=== PATIENT | male | born 1945 | race Caucasian/White ===

== ENCOUNTER → 2019-08-27 | Outpatient (CLI) | payer OTHER | LOC: CAT 11:53 | DX: J84.10 Pulmonary fibrosis, unspecified (principal); M47.814 Spondylosis without myelopathy or radiculopathy, thoracic region; M51.45 Schmorl's nodes, thoracolumbar region ==

== ENCOUNTER → 2020-02-26 | Outpatient (CLI) | payer OTHER ==
[~2020-02-26] MED LIST: ASA81BEC PO; FLOMAX0.4 MG PO; LEVO-T100 MCG PO; MEMANTINE HCL10 MG PO; METAMUCIL1 EAC1 PO; NORVASC 2.5 MG2.5 M1 PO; PANTOPRAZOLE SO40 M1 PO; RIVASTIGMINE1.5 MG PO; SLO-NIACIN500 MG PO; TESTOSTERO200 MG/11 IM
== END ==
LOC: LAB 08:08
PROVIDERS: ATTEND Student in an Organized Health Care Education/Training Program
DX: U07.1 COVID-19 (principal)

== ENCOUNTER 2020-02-28 21:05 | Inpatient (IN) | payer OTHER ==
[~2020-02-28] VITALS: Ht 172.7 cm; Wt 81.2 kg
[2020-02-28 21:08] VITALS: BP 98/67
[2020-02-28 22:19] LABS: HEMATOCRIT 47.3 % (42.0-52.0); MCH 30.7 pg (26.0-34.0); MCHC 33.8 g/dL (28.0-37.0); MCV 90.9 fL (80.0-100.0); PLATELET COUNT 125 thou/uL (150-400); RBC 5.21 mil/uL (4.50-6.00); RDW 13.2 % (10.5-14.5); WBC 4.2 thou/uL (4.0-11.0)
[2020-02-28 22:23] LABS: URINE BILIRUBIN NEGATIVE (Negative); URINE BLOOD TRACE (Negative); URINE CLARITY CLEAR; URINE COLOR YELLOW; URINE GLUCOSE-RANDOM* NEGATIVE (Negative); URINE KETONES TRACE (Negative); URINE LEUKOCYTES-REFLEX NEGATIVE (Negative); URINE NITRITE-REFLEX NEGATIVE (Negative); URINE PROTEIN (DIPSTICK) 1+ (Negative); URINE UROBILINOGEN 0.2 E.U./dl (0.2-1.0)
[2020-02-28 22:27] LABS: ANION GAP 10 mmol/L (7-16); BUN 22 mg/dL (7-18); CALCIUM 8.3 mg/dL (8.5-10.1); CHLORIDE 96 mmol/L (98-107); CO2 25 mmol/L (21-32); CREATININE 1.5 mg/dL (0.7-1.3); GLUCOSE 98 mg/dL (74-106); SODIUM 131 mmol/L (136-145)
[2020-02-28 22:33] LABS: BACTERIA-REFLEX None Seen /HPF (None Seen); CRYSTALS None Seen /LPF (None Seen); HYALINE CASTS 0-3 Few /LPF (None Seen); MUCUS 0-3 Light strn/LPF (None Seen); SQUAMOUS None Seen /LPF (0-3); TRANSITIONAL EPITHEL CELL 0-3 Few /LPF (None Seen); URINE RBC None Seen /HPF (0-2); URINE WBC-REFLEX None Seen /HPF (0-5)
[2020-02-28 22:36] LABS: ALBUMIN 3.4 g/dL (3.4-5.0); POTASSIUM 4.4 mmol/L (3.5-5.1); SGOT 101 U/L (15-37); SGPT 78 U/L (30-65); TOTAL BILIRUBIN 0.8 mg/dL (0.2-1.0); TOTAL PROTEIN 7.2 g/dL (6.4-8.2); TROPONIN-I <0.06 ng/mL (<0.06)
[2020-02-28 22:49] LABS: ABSOLUTE NEUTROPHILS 2.7 thou/uL (1.4-8.2); ATYPICAL LYMPHS 3 %
[2020-02-29] MEDS ORDERED: NORVASC 2.5 MG2.5 M1 PO (01:29)
[2020-02-29] MEDS ORDERED: LEVO-T100 MCG PO (01:30)
[2020-02-29] MEDS ORDERED: SLO-NIACIN500 MG PO (01:31)
[2020-02-29] MEDS ORDERED: TESTOSTERO200 MG/11 IM (01:33)
[2020-02-29] MEDS ORDERED: MEMANTINE HCL10 MG PO (01:34)
[2020-02-29] MEDS ORDERED: RIVASTIGMINE1.5 MG PO (01:34)
[2020-02-29] MEDS ORDERED: ASA81BEC PO (01:35)
[2020-02-29] MEDS ORDERED: PANTOPRAZOLE SO40 M1 PO (01:35)
[2020-02-29] MEDS ORDERED: FLOMAX0.4 MG PO (01:36)
[2020-02-29 01:48] VITALS: BP 134/71
[2020-02-29 02:06] VITALS: BP 133/86
[2020-02-29 02:34] VITALS: BP 119/74
--- NOTE | 2020-02-29 04:08 | NUR ---
PT ARRIVED ON THE UNIT THIS AM @0230. ALERT AND ORIENTED TO PERSON AND PLACE. FORGETFUL. ABLE TO ANSWER BASIC QUESTION. ADMISSION DONE AND CHARTED. PT ORIENTED TO THE UNIT. LIVES AT HOME WITH AND USES A WALKER. IV INTACT AND FLUIDS STARTED. URINAL AT BEDSIDE. PT DRIVERS LICENCE AND MEDICARE RX SENT TO SECURITY FOR SAFE KEEPING. DRY COUGH NOTED. FALL PREC IN PLACE AND WILL CONT TO MONITOR.
[2020-02-29 07:56] VITALS: BP 110/63
--- NOTE | 2020-02-29 08:18 | EKG ---
[facility] [place] [address] ELECTROCARDIOGRAM REPORT Name: OUMOU DAMON Room #: 361- ADM IN M.R.#: [id number] Admission: 02/28/20 Attend Phys: Jp Valdez MD Discharge: Date of : 41 Report #: [id number] THIS REPORT FOR: cc: Geoffrey Hanley Steven F. DO Couchonnal, Luis F. MD ~ THIS REPORT FOR: //name// [facility] ED Test Date: 2020-02-28 Test Time: 21:27:00 Pat Name: OUMOU DAMON Department: Room: [facility] Gender: M Sales Department Supervisor: JENIFFER : 1945 Requested By: Prasanna Rizzo Order Number: [id number] MD: Rich Urban Measurements Intervals [place] Rate: 78 P: 58 AL: 168 QRS: 36 QRSD: 97 T: 24 QT: 367 QTc: 419 Interpretive Statements Sinus rhythm Baseline wander in lead(s) V2 No previous ECG available for comparison Electronically Signed On 02-29-2020 8:18:22 CDT by Rich Urban [email or web address] <ELECTRONICALLY SIGNED> By: Rich Urban MD 02/29/20817 26 26 Rich Urban MD /EPI
--- NOTE | 2020-02-29 12:33 | NUR ---
PATIENT COVID TEST RESULTED POSITIVE THIS AFTERNOON. ALEXANDRA PITTMAN RN CALLED AT THIS TIME TO MAKE AWARE. ALSO MADE HER AWARE THAT PATIENT HAD POSITIVE TEST AN OUTPATIENT FOR AN EDOSCOPY PATIENT REMAINS IN ISOLATION.
[2020-02-29] MEDS ORDERED: METAMUCIL1 EAC1 PO (13:04)
--- NOTE | 2020-02-29 13:10 | NUR ---
SPOKE WITH PATIENT TO UPDATE ON CONDITION. STATES THAT SHE WANTS PATIENT TO TAKE METAMUCIL SINCE HE IS ON IT AT HOME AND TAKES EVERY MORNING FOR CONSTIPATION ISSUED, DR. CARRILLO STATES TO HOLD FOR NOW SINCE PATIENT IS HAVING DIARRHEA. PATIENT ALSO WORRIED ABOUT NEED FOR CPAP AT NIGHT. DR. CARRILLO STATES CTM PATIENT BREATHING, PATIENT BREATHING WELL NOW WITHOUT NEED FOR SUPP O2. NO CPAP FOR NOW BECAUSE OF RISK FOR CONTAMINATION SINCE PATIENT IS COVID POSITIVE. PATIENT MADE AWARE.
[2020-02-29 16:12] VITALS: BP 113/61
--- NOTE | 2020-02-29 16:20 | NUR ---
INITIAL ASSESSMENT: Received consult. SW reviewed chart and spoke with nursing and attending physician. Pt was admitted from home due to AMS/pneumonia. Pt placed in Enhanced Isolation. Pt's COVID test is positive. ID consulted to evaluate pt. Pt was febrile upon admission and is on IV abx. No requiring O2 at this time. Call placed into pt's room. No answer. Per chart, pt lives at home with his . Prior to admission, pt was using a walker. Pt will benefit from therapy evals when able to participate. Pt's PCP is Dr. Hanley. Pt had a COVID test completed on 02/25 as an outpatient for outpatient procedure. Test was positive. SW is following to assist as needed with discharge planning.
[2020-02-29 19:41] VITALS: BP 137/67
--- NOTE | 2020-03-01 02:56 | NUR ---
PT ALERT AND ORIENTED. FORGETFUL AT TIMES. BED ALARM ON . CALL LIGHT IN REACH. TEMP 102.4 TYLEMOL GIVEN . TEMP DOWN TO 99. NO OTHER S/S DISTRESS. GAIT IS WEAK. 1 PERSON ASSIST TO BSC WITH WALKER.
[2020-03-01 04:24] VITALS: BP 155/81
[2020-03-01 07:26] LABS: CALCIUM 7.7 mg/dL (8.5-10.1); CREATININE 1.2 mg/dL (0.7-1.3); POTASSIUM 3.9 mmol/L (3.5-5.1)
[2020-03-01 07:57] VITALS: BP 142/74
--- NOTE | 2020-03-01 15:24 | NUR ---
SW reviewed chart and spoke with nursing and attending physician. Pt in Enhanced Isolation due to COVID-19. Pt is on IV abx. Therapy to eval pt when he is able to participate. SW left voice message for pt's at [phone] to obtain info for assessment and discuss discharge planning. BERTA is following to assist as needed with discharge planning.
[2020-03-01 15:50] VITALS: BP 151/59
[2020-03-01 19:45] VITALS: BP 134/72
--- NOTE | 2020-03-01 20:14 | NUR ---
ASSUMED PATIENT CARE THIS MORNING AT APPROXIMATELY 0700. PATIENT AWAKE AND ALERT THROUGHOUT THIS SHIFT. REMAINS CONFUSED BUT PLEASANT. ORIENTED ONLY TO SELF AND SITUATION. O2 STILL STABLE ON ROOM AIR. HAVING FEVERS THROUGHOUT THIS SHIFT OF 103. MD MADE AWARE OF FEVERS UPON ROUNDING. OTHER VSS. PATIENT HAVING VERY POOR APPETITE, ENCOURAGED PO INTAKE WITH EVERY MEAL. ALSO HAVING LOOSE, WATERY STOOLS. WORKED WITH PHYSICAL THERAPY TODAY FOR DECONDITIONING. SPOKE WITH LUIS ON PHONE TO UPDATE ON CONDITION.
--- NOTE | 2020-03-02 00:22 | NUR ---
PT RESTING IN BED, PLEASANTLY CONFUSED ALERT TO SELF AND SITUATION. . PHONE WAS RINGING AND PT STATED HE DID NOT KNOW IT WAS RINGING. PT HAS COUGH. LUNGS DIMINISHED IN BASES. PT VERY WEAK AND REQUIRED A TWO PERSON TRANSFER TO BSC, ALSO ASSISTED WITH URINAL. PT IMPULSIVE AND HAS TRIED TO GET OOB SEVERAL TIMES. SCDS ON BED ALARM ON.
[2020-03-02 04:05] VITALS: BP 135/75
[2020-03-02 06:27] LABS: ABSOLUTE NEUTROPHILS 2.9 thou/uL (1.4-8.2); BASOPHILS 0.2 % (0.0-2.0); HEMATOCRIT 43.9 % (42.0-52.0); HEMOGLOBIN 14.8 gm/dL (14.0-18.0); LYMPHOCYTES 12.9 % (24.0-44.0); MCH 30.7 pg (26.0-34.0); MCHC 33.8 g/dL (28.0-37.0); MCV 90.6 fL (80.0-100.0); MONOCYTES 6.3 % (1.0-8.0); PLATELET COUNT 107 thou/uL (150-400); POLYS 80.6 % (36.0-66.0); RBC 4.84 mil/uL (4.50-6.00); RDW 13.2 % (10.5-14.5); WBC 3.6 thou/uL (4.0-11.0)
[2020-03-02 08:42] VITALS: BP 129/78
--- NOTE | 2020-03-02 09:55 | NUR ---
ASSUMED CARE FOR THIS PATIENT FOR THE FIRST TIME TODAY, UPON INITIAL ASSESSMENT PT IS ORIENTED TO SELF AND PLACE. PT IS PLEASANT BUT FORGETFUL. PT WAS REMINISCING ABOUT PAST TIMES WITH THE RN AND DID NOT SEEM TO BE IN DISTRESS. TEMPERATURE WAS AT 99.3 THIS AM AND IS BEING MONITORED. PT'S CALLED AND WAS CONCERNED ABOUT PT'S DIETARY STATUS. RN PLACED A DIETARY CONSULT FOR ENSURE SINCE PT IS HAVING POOR APPETITE EVEN AFTER RN SET UP BREAKFAST IN ROOM FOR THE PATIENT. PT WAS SEEN WATCHING TV. FALL PRECAUTIONS IN PLACE, BED ALARM IS ON, FLUIDS NEAR BY THE BED, WILL CONTINUE TO FOLLOW AND UPDATE NEEDED
[2020-03-02 10:56] VITALS: BP 137/80
--- NOTE | 2020-03-02 11:34 | NUR ---
SW reviewed chart and spoke with nursing and attending physician. Pt is in Enhanced Isolation due to COVID-19. Pt with a low grade fever today. Pt is no requiring O2. Therapy to work with pt for recommendations for discharge. SW received voice message from pt's . SW returned call and left voice message to discuss pt's prior level of functioning and discharge plan. Phone number for updated ([phone]). SW is following to assist as needed with discharge planning.
[2020-03-02 15:31] VITALS: BP 132/68
[2020-03-02 20:25] VITALS: BP 114/67
--- NOTE | 2020-03-02 23:56 | NUR ---
PT REMAINS CONFUSED. HE IS OTHERWISE PLEASANT. FEVER OF 103(AX) AT AROUND 2230. TYLENOL GIVEN.PT IS A LITTLE RESTLESS. INCONTINENT OF B/B. SMALL BM NOTED. PUSHING FLUIDS AND SUPPLEMENTS.ASSISTED TO REPOSITION. VERY WEAK.FALL PREC IN PLACE.
[2020-03-03 05:22] VITALS: BP 135/72
[2020-03-03 07:20] VITALS: BP 116/81
--- NOTE | 2020-03-03 13:41 | NUR ---
BERTA reviewed chart and spoke with nursing and attending physician. Pt is in Enhanced Isolation due to COVID-19. Pt is febrile and on IV abx. Pt is not requiring O2. BERTA spoke with pt's , Elisha, via phone. Introduced role of BERTA. Per Elisha, pt is normally independent with ADLs at home. He does not use any DME. Pt has been walking about 2 miles per day prior to becoming weak and fatigued. Therapy is working with pt to assist with recommendations at time of discharge. BERTA discussed discharge plans with pt's . Pt's would prefer pt come home with services. Pt has used HH services in the past. Unsure name of provider. Pt has also done outpatient therapy at [facility]. Pt's PCP is Dr. Hanley. BERTA is following to assist as needed with discharge planning.
[2020-03-03 15:52] VITALS: BP 131/77
[2020-03-03 20:45] VITALS: BP 111/65
[2020-03-04 04:40] VITALS: BP 144/78
[2020-03-04 06:51] LABS: HEMATOCRIT 46.9 % (42.0-52.0); HEMOGLOBIN 15.7 gm/dL (14.0-18.0); MCH 30.2 pg (26.0-34.0); MCHC 33.6 g/dL (28.0-37.0); MCV 89.9 fL (80.0-100.0); RBC 5.22 mil/uL (4.50-6.00); RDW 13.2 % (10.5-14.5); WBC 5.1 thou/uL (4.0-11.0)
[2020-03-04 07:14] LABS: ALBUMIN 2.8 g/dL (3.4-5.0); CALCIUM 7.8 mg/dL (8.5-10.1); CREATININE 1.3 mg/dL (0.7-1.3); POTASSIUM 3.5 mmol/L (3.5-5.1); TOTAL BILIRUBIN 0.7 mg/dL (0.2-1.0); TOTAL PROTEIN 6.7 g/dL (6.4-8.2)
--- NOTE | 2020-03-04 07:50 | NUR ---
RESTED WELL THROUGHOUT HOURLY ROUNDS, IV REPLACED DURING SHIFT , PT INCONINTEBT OF LOOSE BROWN STOOL . NO CHANGES NOTED, WILL CONITNUE WITH CURRENT PLAN OF CARE.
[2020-03-04 08:26] VITALS: BP 101/53
--- NOTE | 2020-03-04 11:37 | NUR ---
PT WAS SEEN TODAY, APPEARS SAME YESTERDAY. HAD TWO BOWEL MOVEMENT THIS MORNING, BOTH DIARRHEA. PT ALSO RAN A LOW GRADE FEVER OF 100F IN THE AM, TYLENOL WAS PROVIDED PER ORDER. PT IS STILL HAVING VERY LOW APPETITE, ENSURE IS BEING ENCOURAGED HYDRATION WELL. PT'S FACE IS STIL FLUSHED. PT/OT WORKED WITH THE PT THIS MORNING. PT WAS ABLE TO GET OUT OF BED AND UP TO THE RECLINING CHAIR W/ ONLY ONE PERSON ASSIST. NO OTHER ISSUES AT THIS TIME
--- NOTE | 2020-03-04 13:47 | NUR ---
SW reviewed chart and spoke with nursing and attending physician. Pt is in Enhanced Isolation to r/o COVID-19. Pt is afebrile. Pt is on IV abx. Pt not on O2. Recommendation made for pt to go to post-acute care upon discharge. SW spoke with pt's via phone to discuss discharge plan. Pt's states that due to pt's dementia, she would want pt to return home with HH services. Pt's states that she feels she would be able to take care of pt at home. SW reviewed therapy notes. No weekend discharge planned. Options discussed for HH agencies. No preference voiced. SW discussed potential placement if pt were not to do well at home and need placement from home. SW explained that insurance authorization would need to be obtained. SW to provide SNF list to pt's for review when discharged. BERTA faxed referral to [facility] for review. Notified HH liaison. BERTA is following to assist as needed with discharge planning.
[2020-03-04 15:52] VITALS: BP 126/64
[2020-03-04 19:46] VITALS: BP 133/54
--- NOTE | 2020-03-05 01:05 | NUR ---
PT AOX2-3, TO PERSON, PLACE, AND SITUATION AT TIMES. PT NOTED TO BE FORGETFUL WITH INTERMITTENT CONFUSION. PT HAVING INAPPROPRIATE CONVERSATIONS, ABLE TO REDIRECT WITHOUT ISSUE. PT DENIES PAIN. NOTED TO HAVE LOW O2 SATURATIONS ON ROOM AIR, 2L O2 VIA NC APPLIED, SATURATIONS NOTED TO INCREASE TO 89-90%. PT NOTED TO REMOVE NC DUE TO DISCOMFORT. PT AWARE OF NEEDS, POOR COORDINATION DUE TO TREMORS. VOIDING VIA URINAL. SKIN ASSESSED WITH REDDNESS TO COCCYX AREA, BARRIER CREAM APPLIED, FREQUENT REPOSITIONING ENCOURAGED. ASSISTANT SPA DIRECTOR SUPERVISOR ASSEMBLY ROOM NOTIFIED OF POTENTIAL SKIN BREAKDOWN, RECEIVED ORDERS FOR LOW AIR LOSS PUMP, WOUND CONSULT ENTERED. PT ABLE TO ASSIST WITH REPOSITIONING, NOTED TO HAVE WEAKNESS WITH EXERTION. PT TOLERATING PO INTAKE OF FLUIDS AND REGULAR DIET, PT HAD LESS THAN 25% OF DINNER. ENCOURAGED PT TO NOTIFY STAFF FOR ALL NEEDS. CALL LIGHT WITHIN REACH, BED ALARM ON, BED IN LOWEST POSITION, ROOM REMAINS NEAR NURSES STATION. WILL CONTINUE TO MONITOR.
[2020-03-05 04:27] VITALS: BP 121/67
[2020-03-05 05:30] LABS: BE(vivo) -3.3 mmol/L (-2 to +3); HCO3 17.7 mmol/L (22.0-26.0); PCO2 23.2 mmHg (35.0-45.0); PO2 47.5 mmHg (80.0-100.0); pH 7.501 (7.360-7.450); sO2 87.9 % (92.0-98.0)
[2020-03-05 08:21] VITALS: BP 121/68
[2020-03-05 11:55] VITALS: BP 124/63
--- NOTE | 2020-03-05 13:48 | NUR ---
Assumed pt care at 7am.Assessment completed.vss but pt abg report early this am was not good. Dr Ho and Shaheed aware.Pt alert and oriented to person but confused and forgetful.O2 sat on 6l was ranging from 88 to 91%.Dr Hummel notified,she said she will discuss with Dr Ho possible putting pt on bipap. Pt yells out on and off but reoriented as needed.Will continue to monitor.
[2020-03-05 15:51] VITALS: BP 121/65
[2020-03-05 16:49] LABS: BASOPHILS 0.4 % (0.0-2.0); HEMATOCRIT 42.5 % (42.0-52.0); HEMOGLOBIN 14.6 gm/dL (14.0-18.0); LYMPHOCYTES 5.1 % (24.0-44.0); MCH 31.1 pg (26.0-34.0); MCHC 34.4 g/dL (28.0-37.0); MCV 90.3 fL (80.0-100.0); MONOCYTES 3.1 % (1.0-8.0); PLATELET COUNT 183 thou/uL (150-400); POLYS 91.4 % (36.0-66.0); RDW 13.6 % (10.5-14.5); WBC 6.5 thou/uL (4.0-11.0)
[2020-03-05 17:07] LABS: ALBUMIN 2.3 g/dL (3.4-5.0); CALCIUM 7.5 mg/dL (8.5-10.1); CREATININE 1.2 mg/dL (0.7-1.3); MAGNESIUM 2.3 mg/dL (1.8-2.4); POTASSIUM 3.7 mmol/L (3.5-5.1); TOTAL BILIRUBIN 1.1 mg/dL (0.2-1.0); TOTAL PROTEIN 6.2 g/dL (6.4-8.2)
[2020-03-05 18:08] LABS: BE(vivo) -0.5 mmol/L (-2 to +3); HCO3 21.5 mmol/L (22.0-26.0); PCO2 28.7 mmHg (35.0-45.0); pH 7.492 (7.360-7.450); sO2 89.5 % (92.0-98.0)
[2020-03-05 20:11] VITALS: BP 118/71
[2020-03-05 23:01] VITALS: BP 141/60
[2020-03-06] VITALS (34 sets, daily range): BP systolic 95–135; BP diastolic 58–100
--- NOTE | 2020-03-06 04:30 | NUR ---
PATIENT ARRIVED FROM 3W AROUND 1999. TRANSFERED TO ICU BED, PLACED ON ICU SYSTEMS. RESPIRATORY THERAPY PLACED HIM ON BIPAP AT 65%, TACHYPNIC. SPOKE WITH WERNER GONZALES NP AND RECEIVED ORDER FOR DEXMEDETOMIDINE. PATIENT CONFUSED AND IMPULSIVE. FALL PRECAUTIONS IN PLACE DURING SHIFT. DENIED PAIN. SPOKE WITH HIS LUIS WHO HAD NOT BEEN INFORMED OF HIS MOVE TO ICU.
[2020-03-06 06:21] LABS: ABSOLUTE NEUTROPHILS 6.6 thou/uL (1.4-8.2); BASOPHILS 0.1 % (0.0-2.0); HEMOGLOBIN 15.2 gm/dL (14.0-18.0); MCH 30.4 pg (26.0-34.0); MCHC 33.7 g/dL (28.0-37.0); MCV 90.2 fL (80.0-100.0); MONOCYTES 2.7 % (1.0-8.0); PLATELET COUNT 201 thou/uL (150-400); POLYS 93.2 % (36.0-66.0); RBC 4.99 mil/uL (4.50-6.00); RDW 13.4 % (10.5-14.5); WBC 7.1 thou/uL (4.0-11.0)
[2020-03-06 07:18] LABS: ALBUMIN 2.3 g/dL (3.4-5.0); CALCIUM 8.3 mg/dL (8.5-10.1); CREATININE 1.1 mg/dL (0.7-1.3); POTASSIUM 4.5 mmol/L (3.5-5.1); TOTAL BILIRUBIN 0.9 mg/dL (0.2-1.0); TOTAL PROTEIN 6.7 g/dL (6.4-8.2)
[2020-03-06 08:11] LABS: PROTIME 10.3 Seconds (9.3-11.4)
--- NOTE | 2020-03-06 19:19 | NUR ---
PATIENT REMAINS ON BIPAP DURING THE DAY. 65% FIO2. PRECEDEX WEANED OFF. SINUS JESSICA. CONDOM CATHETER. RIGHT PIV.
[2020-03-07] VITALS (8 sets, daily range): BP systolic 108–148; BP diastolic 59–73
[2020-03-07 05:39] LABS: ABSOLUTE NEUTROPHILS 5.1 thou/uL (1.4-8.2); BASOPHILS 0.2 % (0.0-2.0); HEMATOCRIT 47.9 % (42.0-52.0); HEMOGLOBIN 16.1 gm/dL (14.0-18.0); LYMPHOCYTES 7.6 % (24.0-44.0); MCH 30.4 pg (26.0-34.0); MCHC 33.7 g/dL (28.0-37.0); MCV 90.2 fL (80.0-100.0); MONOCYTES 6.1 % (1.0-8.0); PLATELET COUNT 219 thou/uL (150-400); POLYS 86.1 % (36.0-66.0); RBC 5.31 mil/uL (4.50-6.00); RDW 13.5 % (10.5-14.5)
[2020-03-07 06:13] LABS: CREATININE 0.9 mg/dL (0.7-1.3); MAGNESIUM 2.9 mg/dL (1.8-2.4); PHOSPHORUS 3.3 mg/dL (2.5-4.9)
--- NOTE | 2020-03-07 06:19 | NUR ---
PT MAKING SLOW PROGRESS TOWARDS GOALS. ON BIPAP THROUGHOUT THE NIGHT. ABLE TO TOLERATE MOMENTARY BREAKS OFF BIPAP TO TAKE PO MEDS AND SIPS OF WATER WITHOUT OBSERVABLE SOA. CONTINUE TO MONITOR.
--- NOTE | 2020-03-07 14:56 | NUR ---
SW reviewed chart and spoke with nursing and attending physician. Pt in Enhanced Isolation due to COVID-19. Pt was transferred to ICU and then back to 3W over the weekend. Pt is requiring bipap support. Pt is afebrile and on IV abx/IV steroids. Pt may have convalescent plasma per ID. Therapy is on hold at this time. SW is following to assist as needed with discharge planning.
--- NOTE | 2020-03-07 16:21 | NUR ---
PT WITH DECLINE IN MEDICAL STATUS OVER THE WEEKEND W/TX TO ICU PRIOR TO RETURN TO 3W. PT ON BIPAP W/TRIALS OFF BIPAP THIS DATE. PER DEPT POLICY, REQUEST NEW P.T. ORDERS ONCE PT IS DEEMED APPROPRIATE FOR RESUMPTION OF THERAPEUTIC ACTIVITIES.
--- NOTE | 2020-03-07 20:16 | NUR ---
PT STARTED SHIFT ON BIPAP WITH 60% FIO2 AND WAS ON 3L @ 1700...WILL MONITOR
[2020-03-08 04:00] VITALS: BP 133/70
--- NOTE | 2020-03-08 06:06 | NUR ---
PT MAKING PROGRESS TOWARDS GOALS. PT FREQUENTLY REMOVES OXYGEN CANNULA FROM HIS NOSE. PT COOPERATIVE BUT UNABLE TO RETAIN INSTRUCTIONS. O2 SATS PERFORMED ARE ALL ON ROOM AIR. O2 SAT GENERALLY 95% ON ROOM AIR. LUNGS DIMINISHED IN BOTH BASES. WEAK AND NON-PRODUCTIVE COUGH OBSERVED THIS MORNING. PT DENIES FEELING SOA AT REST. HAS BEEN TURNING SELF IN BED.
[2020-03-08 07:30] VITALS: BP 125/70
[2020-03-08 11:13] VITALS: BP 130/60
[2020-03-08 15:29] VITALS: BP 131/60
--- NOTE | 2020-03-08 15:46 | NUR ---
BERTA reviewed chart and spoke with nursing and attending physician. Pt remains in Enhanced Isolation due to COVID-19. Pt is afebrile and not requiring O2. Pt is on IV abx/IV steroids. Pt had plasma last evening. Therapy to be reordered to work with pt prior to discharge. Discharge home with is anticipated for tomorrow. [facility] has accepted pt onto service. Repeat COVID test ordered today. PT/OT ordered to re-evaluate pt. BERTA updated Diana in intake at to notify of anticipated discharge. BERTA spoke with pt's , Elisha, via phone to provide update and discuss discharge plan. Pt's is aware and in agreement with plan. BERTA is following to assist as needed with discharge planning.
[2020-03-08 19:05] VITALS: BP 127/72
[2020-03-09 04:14] VITALS: BP 132/73
--- NOTE | 2020-03-09 05:38 | NUR ---
PT MAKING PROGRESS TOWARDS GOALS. HAS BEEN ON ROOM AIR THROUGHOUT THE NIGHT. NOTED OCCASIONAL NON-PRODUCTIVE COUGH. DENIES ANY SOA WHILE LYING IN BED. COOPERATIVE BUT FORGETFUL. ABLE TO STATE NAME AND "HOSPITAL" CORRECTLY.
[2020-03-09 08:00] VITALS: BP 137/68
[2020-03-09 11:00] VITALS: BP 137/68
[2020-03-09] MEDS ORDERED: PREDNISONE 20 M20 M1 PO (11:20)
[2020-03-09] MEDS ORDERED: COMBIVENT RESPIM4 GM INH (11:20)
[2020-03-09 13:02] VITALS: BP 123/75
[2020-03-09 14:00] VITALS: BP 115/65
--- NOTE | 2020-03-09 15:18 | NUR ---
BERTA reviewed chart and spoke with nursing and attending physician. Pt remains in Enhanced Isolation. Pt's repeat COVID test from 03/08 negative. Pt is afebrile and not requiring O2. Pt is on IV steroids and IV abx. Pt is progressing towards goals for discharge. Therapy is recommending possible post-acute care at time of discharge due to pt's level of care needs. Pt will need assistance. BERTA spoke with pt's via phone to provide update. Pt's is really adamant about bringing pt home with HH. She does not want pt to go a nursing facility due to his dementia and COVID. Pt's states their son is in town and will be able to assist as needed. BERTA discussed with both PT/OT, who will see pt again tomorrow to determine if pt is safe to return home. BERTA updated attending physician. BERTA is following to assist as needed with discharge planning.
[2020-03-09] MEDS ORDERED: SYNTHROID100 MC1 PO (18:41)
--- NOTE | 2020-03-09 19:04 | NUR ---
PT KNOWS HIS NAME AND HIS BIRTHDAY, BUT PT IS CONFUSED AT MOST OF TIME, HE TRIES TO GET UP BY HIMSELF, PT IS OFF O2, AND HE IS ON ROOM AIR , PT'S VS ARE STABLE, PT DOES NOT HAVE SOB AND FEVER, PT IS CONTINUING IV ABX , PT'S PLAN IS DC TOMORROW.
[2020-03-09 19:21] VITALS: BP 157/50
--- NOTE | 2020-03-09 21:09 | NUR ---
PT ALERT TO SELF AND SITUATION, PLEASANT JOKES TALKS [facility] CONTACT. IVF INTACT. PT UNSTEADY GAIT, AMBULATES WITH WALKER AND SBA. PT VERY IMPULSIVE, FREQUENTLY GETS OUT OF BED. LUNGS DIMINSHED WITH COUGH. PTS CALLED STATING SHE WANTS TO TAKE HIM HOME AND SHE HAS HER SON TO HELP. ENCOURAGED PT TO DRINK AND HAVE SNACK FROM HOME. BED ALARM ON.
[2020-03-10 05:27] VITALS: BP 148/75
[2020-03-10 07:46] VITALS: BP 185/77
[2020-03-10 09:06] VITALS: BP 185/77
[2020-03-10 09:07] VITALS: BP 142/81
[2020-03-10] MEDS ORDERED: AUGMENTIN 875-1 EACH PO (09:15)
--- NOTE | 2020-03-10 09:19 | HC ---
[facility] [place] [address] CONSULTATION Name: OUMOU DAMON Room #: 349-I ADM IN M.R.#: [id number] Admission: 02/28/20 Attend Phys: Jp Valdez MD Discharge: Date of : 41 Report #: [id number] THIS REPORT FOR: cc: Geoffrey Hanley,Lalo Jackson MD ~ CC: Jp Hanley DATE OF SERVICE: 03/07/2020 CHIEF COMPLAINT: Possible sacral pressure ulceration. HISTORY OF PRESENT ILLNESS: This is a 74-year-old male patient with a history of hypertension, BPH, and hypothyroidism, who was admitted to the hospital with weakness. He was noted to have respiratory failure secondary to COVID-19 pneumonia. He was felt to possibly have a sacral ulceration. I have been asked to see him with regard to wound care. The patient is slow to answer questions and has a history of baseline dementia. ALLERGIES: No known drug allergies. PAST MEDICAL HISTORY: Hypothyroidism, gastroesophageal reflux disease, hypertension, BPH, dementia. SOCIAL HISTORY: Negative for alcohol or tobacco use. MEDICATIONS: Include amlodipine and levothyroxine. REVIEW OF SYSTEMS: Unobtainable due to the patient's current clinical status and underlying dementia. PHYSICAL EXAMINATION: VITAL SIGNS: At this time include temperature 36.7, pulse 68, respiratory rate 16, blood pressure 121/62. GENERAL: This is a somewhat chronically ill-appearing male patient who appears to be in minimal distress. HEENT: Head normocephalic. Nose and throat clear. NECK: Supple. HEART: Regular rhythm. LUNGS: Clear. ABDOMEN: Soft, nontender. EXTREMITIES: Without clubbing or cyanosis. NEUROLOGIC: The patient is awake, seems oriented, but is slow to answer questions. SKIN: Demonstrates that the heels are intact. There is mild erythema that is [facility] [address] [place] [address] CONSULTATION Name: OUMOU DAMON Room #: 349-I [facility]#: [id number] Admission: 02/28/20 Attend Phys: Jp Valdez MD Discharge: Date of : 41 Report #: [id number] blanchable to the sacral region. No other open ulcerations are noted. CLINICAL IMPRESSION: 1. Frailty with high risk for skin breakdown. 2. Dementia with altered mental status. 3. Suspected COVID-19 infection. 4. Hypothyroidism. 5. Severe protein-calorie malnutrition with albumin of 2.3. RECOMMENDATIONS: At this point in time, the areas of the sacral erythema are really not breakdown, do not even represent stage I pressure ulceration. We will recommend a moisture barrier cream; however daily and p.r.n. as a preventative measure. He will need a low air loss surface and turning and repositioning every 2 hours and will need to offload his heels to prevent breakdown in that area. Continue with maximizing nutritional input to improve his general debility. I appreciate being asked to see him in consultation. <ELECTRONICALLY SIGNED> By: Lalo Perez MD 03/10/20 0919 [id number] Lalo Perez MD /nt
--- NOTE | 2020-03-10 11:34 | NUR ---
PT'S COVID INFECTION HAS IMPROVED, PT'S COVID TEST WAS NEGATIVE AT 03/08/20, PT IS ON ROOM AIR, PT'S VS AND O2SAT ARE STABLE, PT'S WEAKNESS HAS IMPROVED, PT GETS UP TO CHAIR WITH ASSIST, PT DOES NOT HAVE SOB AND FEVER , BUT PT STILL IS CONFUSED AND PT NEEDS EATING AND DRINING MORE , PT HAS WORKED WITH PT/OT, PT'S FAMILY REQUEST PT DC TO HOME WITH HOME HEALTH, PT'S PLAN WILL DC TO HOME AND PT'S FAMILY WILL RATE SETTER ABOUT 1300PM.
--- NOTE | 2020-03-10 12:43 | NUR ---
PT'S FAMLIY CORPORATE ADMINISTRATOR PT NOW, 3 W ASSET PROTECTION DETECTIVE SEND TO USE WC TO SEND PT TO HOSPITAL ER AT THIS TIME, DC PAPER HAS GIVING TO PT AND FAMILY, REMIDER FAMILY TO GET PT'S NEW MEDICATIONS.
--- NOTE | 2020-03-10 13:08 | NUR ---
DISCHARGE NOTE: BERTA reviewed chart and spoke with nursing and attending physician. Pt is medically stable for discharge home today with HH services. BERTA spoke with pt's via phone to provide update and discuss discharge plan. Pt's is agreeable with plan. Pt's son will be staying with pt and for a while after discharge. Pt's states they feel that they feel comfortable with provided care for pt. Pt's family to provide transportation home at 1300 today. Pt has a walker at home from previous knee surgery. BERTA faxed finalized discharge orders/summary to [facility] and notified Diana in intake. Contact info for HH placed in pt's discharge summary. No additional SW needs identified at this time, but is available to assist should needs arise.
== END 2020-03-10 12:49 | disposition home health service (06) | DRG 177 ==
LOC: ER 21:05 → EROBS 22:51 → 3W 22:51 → ICU 03-05 20:47 → 3W 03-06 23:46
PROVIDERS: Emergency Medicine; Internal Medicine; Nurse Practitioner Family; Specialist; ADMIT Hospitalist; ATTEND Hospitalist
PROC: 5A09457 Assistance with Respiratory Ventilation, 24-96 Consecutive Hours, Continuous Positive Airway Pressure (ICD-10-PCS; principal; 2020-03-05)
PROC: XW13325 Transfusion of Convalescent Plasma (Nonautologous) into Peripheral Vein, Percutaneous Approach, New Technology Group 5 (ICD-10-PCS; 2020-03-07)
DX: U07.1 COVID-19 (principal); G92 Toxic encephalopathy; E43 Unspecified severe protein-calorie malnutrition; J12.89 Other viral pneumonia; J96.01 Acute respiratory failure with hypoxia; E03.9 Hypothyroidism, unspecified; K21.9 Gastro-esophageal reflux disease without esophagitis; N40.0 Benign prostatic hyperplasia without lower urinary tract symptoms; F03.90 Unspecified dementia, unspecified severity, without behavioral disturbance, psychotic disturbance, mood disturbance, and anxiety; D69.6 Thrombocytopenia, unspecified; Z68.27 Body mass index [BMI] 27.0-27.9, adult; Z79.899 Other long term (current) drug therapy
CPT/HCPCS: 10078; 10080; 10879

== ENCOUNTER 2020-03-19 16:24 | Emergency (ER) | payer OTHER ==
[~2020-03-19] VITALS: Ht 172.7 cm; Wt 75.3 kg
[~2020-03-19 16:24] MED LIST changes: +AUGMENTIN 875-1 EACH PO; +COMBIVENT RESPIM4 GM INH; +PREDNISONE 20 M20 M1 PO; +SYNTHROID100 MC1 PO
[2020-03-19 17:12] LABS: ABSOLUTE NEUTROPHILS 9.2 thou/uL (1.4-8.2); BASOPHILS 0.6 % (0.0-2.0); EOSINOPHILS 0.4 % (0.0-3.0); HEMATOCRIT 42.7 % (42.0-52.0); LYMPHOCYTES 9.9 % (24.0-44.0); MCH 30.1 pg (26.0-34.0); MCHC 32.8 g/dL (28.0-37.0); MCV 91.8 fL (80.0-100.0); MONOCYTES 11.1 % (1.0-8.0); PLATELET COUNT 258 thou/uL (150-400); RBC 4.65 mil/uL (4.50-6.00); RDW 13.9 % (10.5-14.5); WBC 11.7 thou/uL (4.0-11.0)
[2020-03-19 17:24] LABS: CALCIUM 8.4 mg/dL (8.5-10.1); CREATININE 0.9 mg/dL (0.7-1.3)
[2020-03-19 17:30] LABS: ALBUMIN 2.5 g/dL (3.4-5.0); TOTAL PROTEIN 6.6 g/dL (6.4-8.2)
[2020-03-19 17:53] LABS: URINE BILIRUBIN 1+ (Negative); URINE BLOOD NEGATIVE (Negative); URINE CLARITY CLEAR; URINE COLOR YELLOW; URINE GLUCOSE-RANDOM* NEGATIVE (Negative); URINE KETONES NEGATIVE (Negative); URINE LEUKOCYTES-REFLEX NEGATIVE (Negative); URINE NITRITE-REFLEX NEGATIVE (Negative); URINE PROTEIN (DIPSTICK) 1+ (Negative)
[2020-03-19 17:55] LABS: ICTOTEST (BILI CONFIRMATORY) Negative (Negative)
[2020-03-19 18:08] LABS: BACTERIA-REFLEX 1-9 Few /HPF (None Seen); CASTS None Seen /LPF (None Seen); CRYSTALS None Seen /LPF (None Seen); SQUAMOUS 0-3 Few /LPF (0-3); URINE RBC None Seen /HPF (0-2); URINE WBC-REFLEX 6-15 Few /HPF (0-5)
[2020-03-19] MEDS ORDERED: AZITHROMYCIN 2250 MG PO (19:13)
[2020-03-19 19:29] VITALS: BP 108/67
== END 2020-03-19 19:29 | disposition home or self-care (01) ==
LOC: ER 16:24
PROVIDERS: Physician Assistant
DX: J18.9 Pneumonia, unspecified organism (principal); R50.9 Fever, unspecified; I10 Essential (primary) hypertension; K21.9 Gastro-esophageal reflux disease without esophagitis; E03.9 Hypothyroidism, unspecified; Z79.899 Other long term (current) drug therapy; Z20.828 Contact with and (suspected) exposure to other viral communicable diseases

== ENCOUNTER → 2020-04-08 | Outpatient (CLI) | payer OTHER ==
[~2020-04-08] MED LIST changes: +AZITHROMYCIN 2250 MG PO
== END ==
LOC: CAT 10:32
PROVIDERS: ATTEND Neuromusculoskeletal Medicine & OMM
DX: R91.8 Other nonspecific abnormal finding of lung field (principal); J84.10 Pulmonary fibrosis, unspecified; J98.4 Other disorders of lung; I25.10 Atherosclerotic heart disease of native coronary artery without angina pectoris

== ENCOUNTER → 2020-05-30 | Outpatient (CLI) | payer OTHER | LOC: CAT 10:17 | PROVIDERS: ATTEND Neuromusculoskeletal Medicine & OMM | DX: J84.10 Pulmonary fibrosis, unspecified (principal); R91.8 Other nonspecific abnormal finding of lung field ==

== ENCOUNTER → 2020-06-10 | Outpatient (CLI) | payer OTHER | LOC: LAB 09:30 | PROVIDERS: ATTEND Student in an Organized Health Care Education/Training Program | DX: Z20.828 Contact with and (suspected) exposure to other viral communicable diseases (principal) ==

== ENCOUNTER → 2020-06-15 | Outpatient (CLI) | payer OTHER ==
[~2020-06-15] VITALS: Ht 172.7 cm; Wt 83.9 kg
[~2020-06-15] MED LIST changes: +CALCIUM500 MG PO; +CO-ENZYME Q-1010 MG PO; +MULTIVITAMINS1 EAC7 PO; +TURMERIC500 M2 PO
--- NOTE | 2020-06-17 08:14 | P ---
[facility] [place] [address] PROCEDURE REPORT Name: OUMOU DAMON [id number] Admission: 06/15/20 Attend Phys: David Roth Discharge: Date of : 41 Report #: [id number] THIS REPORT FOR: cc: Geoffrey Hanley,David Sinha MD ~ CC: David Hanley DATE OF SERVICE: 06/15/2020 PROCEDURE PERFORMED: Colonoscopy with polypectomies. HISTORY OF PRESENT ILLNESS: The patient is a 75-year-old male with a history of polyps, here for 5-year followup. Denies any symptoms. No family history of colon cancer. DESCRIPTION OF PROCEDURE: The risks and benefits of the procedure were explained to the patient, those risks including but not limited to bleeding, perforation and the risk of sedation. He understood these risks and gave informed consent. Sedation was given using propofol per anesthesia. Next, a digital rectal exam was initially performed, which was normal. Next, using a standard Olympus colonoscope, the scope was placed in the patient's anus and advanced under direct vision to the cecum. Overall, prep was good. The cecum was normal. On the ileocecal valve, a 6 mm sessile polyp was noted. This was removed by snare cautery, otherwise normal. In the ascending colon, a 5 mm sessile polyp also removed by snare cautery. A few scattered diverticula were noted in the ascending colon as well. The transverse, descending and sigmoid colon were normal. The rectal mucosa was normal. On retroflexion, no abnormalities were noted. The scope was then withdrawn and the procedure terminated. The patient tolerated the procedure well. IMPRESSION: 1. Two small colonic polyps. 2. Diverticulosis. 3. Otherwise, normal colonoscopy. RECOMMENDATIONS: 1. Await biopsy results. 2. Repeat colonoscopy in [address] [address] PROCEDURE REPORT Name: OUMOU DAMON Yariel Room #: [facility]#: [id number] Admission: 06/15/20 Attend Phys: David Roth Discharge: Date of : 41 Report #: [id number] Thank you for allowing me to participate in his care. <ELECTRONICALLY SIGNED> By: David Harmon MD 06/17/20 0814 1022 0255 David Harmon MD /nt
--- NOTE | 2020-06-17 14:07 | PATH ---
[facility] [place] [address] [address] PATHOLOGY RPT PROCEDURE Name: KIA DAMON Room #: REG [facility] Shepherd.#: [id number] Admission: 06/15/20 Date of : 41 Discharge: Report #: [id number] Path Case #: [id number] [facility] Accession Number: [id number] . 01 Material submitted: . PART A: ileo-cecal valve - POLYP AT ILEO-CECAL VALVE PART B: colon - POLYLP AT ASCENDING COLON. Modifiers: ascending . 01 Clinical history: . HX OF POLYPS . 02 Diagnosis: A. Polyp, at ileocecal valve, endoscopic biopsy: - Tubular adenoma identified in multiple fragments. - Negative for high grade dysplasia. . B. Polyp, at ascending colon, endoscopic biopsy: - Tubular adenoma. - Negative for high grade dysplasia. (IUV/db; 06/17/2020) LBQ 06/17/2020 1352 Local . 02 Electronically signed: . Leslee Demarco MD, Pathologist NPI- [id number] . 01 Gross description: . A. Received in formalin labeled "Kia Damon, polyp at ileocecal valve" is a fragment of wynne-brown soft tissue measuring 0.7 x 0.5 x 0.2 cm. The specimen is submitted entirely in A1. . B. Received in formalin labeled "Kia Damon, polyp at ascending colon" is a fragment of wynne-brown soft tissue measuring 0.4 x 0.3 x 0.1 cm. The specimen is submitted entirely in B1. ([facility]; 06/16/2020) [facility] 06/16/20201950 Local . 02 Pathologist provided ICD-10: D12.0, D12.2 . 02 CPT . 483675, 893824 Specimen Comment: A courtesy copy of this report has been sent to [phone], [phone] Specimen Comment: [id number] Specimen Comment: Report sent to / DR TUTTLE Performed at: [address] [place] [address] PATHOLOGY RPT PROCEDURE Name: KIA DAMON Room #: REG [facility] Ivan#: [id number] Admission: 06/15/20 Date of : 41 Discharge: Report #: [id number] Path Case #: [id number] [address], [place], [place] [id number] MD Jaswinder Camara MD Phone: [phone] Performed at: [address] [id number] MD Leslee Demarco MD Phone: [phone]
== END | disposition home or self-care (01) ==
LOC: GI 08:22
PROVIDERS: ATTEND Specialist
DX: Z12.11 Encounter for screening for malignant neoplasm of colon (principal); Z86.010 Personal history of colon polyps; D12.0 Benign neoplasm of cecum; D12.2 Benign neoplasm of ascending colon; K57.30 Diverticulosis of large intestine without perforation or abscess without bleeding; K64.8 Other hemorrhoids; I10 Essential (primary) hypertension; E03.9 Hypothyroidism, unspecified; N40.0 Benign prostatic hyperplasia without lower urinary tract symptoms; F03.90 Unspecified dementia, unspecified severity, without behavioral disturbance, psychotic disturbance, mood disturbance, and anxiety; G47.30 Sleep apnea, unspecified; K21.9 Gastro-esophageal reflux disease without esophagitis; Z98.890 Other specified postprocedural states; Z79.899 Other long term (current) drug therapy; Z87.891 Personal history of nicotine dependence; Z85.828 Personal history of other malignant neoplasm of skin; Z96.651 Presence of right artificial knee joint; Z85.820 Personal history of malignant melanoma of skin
CPT/HCPCS: 62110; 62900